=== PATIENT | female | born 1980 | race Two or more races ===

== ENCOUNTER 2019-05-26 18:23 | Emergency (ER) | payer OTHER ==
[~2019-05-26] VITALS: Ht 160 cm; Wt 68.0 kg
[~2019-05-26 18:23] MED LIST: [UNRECOGNIZED DRUG - OTHER]
[2019-05-26] MEDS ORDERED: TRAMADOR (18:36)
[2019-05-26] MEDS ORDERED: CATAFLAN (18:36)
== END 2019-05-27 00:26 | disposition home or self-care (01) ==
LOC: ER 18:23
DX: M54.5 Low back pain (principal)